=== PATIENT | female | born 1985 | race Caucasian/White ===

== ENCOUNTER 2022-12-21 11:15 | Day surgery (SDC) | payer OTHER ==
[~2022-12-21] VITALS: Ht 165.1 cm; Wt 107.0 kg
[2022-12-21] MEDS ORDERED: DUI500 PO (18:32)
[2022-12-21] MEDS ORDERED: PERCOCET 5-3251 EACH PO (18:35)
== END 2022-12-21 23:00 | disposition home or self-care (01) ==
LOC: CIR.AMB 11:15
PROVIDERS: ATTEND Orthopaedic Surgery
DX: S82.841A Displaced bimalleolar fracture of right lower leg, initial encounter for closed fracture (principal); S93.04XA Dislocation of right ankle joint, initial encounter; S93.421A Sprain of deltoid ligament of right ankle, initial encounter; S93.491A Sprain of other ligament of right ankle, initial encounter; S90.01XA Contusion of right ankle, initial encounter
CPT/HCPCS: 27814; 20902; 27612; L8699

== ENCOUNTER 2023-03-24 16:50 | Outpatient (CLI) | payer OTHER ==
[~2023-03-24 16:50] MED LIST: DUI500 PO; PERCOCET 5-3251 EACH PO
== END 2023-03-24 18:03 | disposition home or self-care (01) ==
LOC: NST 16:50
PROVIDERS: ATTEND Obstetrics & Gynecology Maternal & Fetal Medicine
DX: Z34.83 Encounter for supervision of other normal pregnancy, third trimester (principal)

== ENCOUNTER 2023-04-02 22:44 | Outpatient (CLI) | payer OTHER ==
[2023-04-02] MEDS ORDERED: PRENATAL CAPLE1 EAC1 PO (22:45)
[2023-04-02] MEDS ORDERED: ACETAMINOPHEN500 M2 PO (22:46)
== END 2023-04-03 08:17 | disposition home or self-care (01) ==
LOC: OBS/DEL 22:44
PROVIDERS: ATTEND Obstetrics & Gynecology
DX: O36.8130 Decreased fetal movements, third trimester, not applicable or unspecified (principal); Z3A.39 39 weeks gestation of pregnancy